=== PATIENT | female | born 1970 | race Caucasian/White ===

== ENCOUNTER 2019-01-21 10:04 | Emergency (ER) | payer OTHER ==
[~2019-01-21] VITALS: Ht 172.7 cm; Wt 68.0 kg
[~2019-01-21 10:04] MED LIST: ALBUTEROL SULF8.5 GM INH; ALLER-FEX180 MG PO; GABAPENTIN100 MG PO; MELOXICAM15 MG PO; PSEUDOEPHEDRINE30 MG PO; WELLBUTRIN SR100 MG PO
--- OUTSIDE RECORDS SUMMARY | 2019-01-21 10:08 | XMS ---
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 E.[place]ourt VISIT COUNT (12 MO.) 1 [facility] [place] TOTAL 1 NOTE: Visits indicate total known visits. ED/UCC VISIT TRACKING (12 MO.) 01/21/2019 10:[address] [facility] [place] TYPE: Emergency COMPLAINT: - SOB INPATIENT VISIT TRACKING (12 MO.) No inpatient visits to display in this time frame [email or web address]
[2019-01-21] MEDS ORDERED: L-METHYLFOLATE15 MG PO (10:19)
[2019-01-21] MEDS ORDERED: VITAMIN D250000 UNIT PO (10:19)
[2019-01-21] MEDS ORDERED: ZUPLENZ4 MG (10:20)
[2019-01-21] MEDS ORDERED: LAMICTAL XR200 MG PO (10:21)
[2019-01-21] MEDS ORDERED: PRAZOSIN HCL5 MG PO (10:21)
[2019-01-21] MEDS ORDERED: DOXYCYCLINE HY100 MG PO (10:22)
[2019-01-21] MEDS ORDERED: BENZONATATE100 MG PO (10:22)
[2019-01-21] MEDS ORDERED: PROPRANOLOL HCL10 MG PO (10:23)
[2019-01-21] MEDS ORDERED: PROZAC10 MG PO (10:24)
--- NOTE | 2019-01-23 07:49 | EKG ---
[facility] [address] [place] [address] Signed Sinus tachycardia Otherwise normal ECG No previous ECGs available Confirmed by STACI RM MD ([id number]) on 01/23/2019 7:49:04 AM Electronically Signed By: STACI RM MD 01/23/19 0749 PATIENT NAME: JAKE GRIER [place] Electrocardiogram DATE OF : 70 PHYSICIAN: STACI RM MD REPORT #: [id number] REPORT IS CONFIDENTIAL AND NOT TO BE RELEASED WITHOUT AUTHORIZATION
--- NOTE | 2019-01-23 07:49 | EKG ---
[facility] [address] [place] [address] Signed Normal sinus rhythm Normal ECG When compared with ECG of 21-JAN-2019 10:13, (Unconfirmed) Vent. rate has decreased BY 54 BPM Confirmed by STACI RM MD ([id number]) on 01/23/2019 7:49:18 AM Electronically Signed By: STACI RM MD 01/23/19 0749 PATIENT NAME: JAKE GRIER Electrocardiogram DATE OF : 70 PHYSICIAN: STACI RM MD REPORT #: [id number] REPORT IS CONFIDENTIAL AND NOT TO BE RELEASED WITHOUT AUTHORIZATION
== END 2019-01-21 12:15 | disposition home or self-care (01) ==
LOC: ED 10:04
DX: J45.909 Unspecified asthma, uncomplicated (principal); J06.9 Acute upper respiratory infection, unspecified; Z87.891 Personal history of nicotine dependence; Z88.8 Allergy status to other drugs, medicaments and biological substances; Z88.1 Allergy status to other antibiotic agents; Z79.899 Other long term (current) drug therapy
CPT/HCPCS: 87502; 93005; 93010; 94640; 99285-25; J1100

== ENCOUNTER 2022-06-15 08:31 | Emergency (ER) | payer OTHER ==
[~2022-06-15] VITALS: Ht 172.7 cm; Wt 68.0 kg
[~2022-06-15 08:31] MED LIST changes: +BENZONATATE100 MG PO; +DOXYCYCLINE HY100 MG PO; +L-METHYLFOLATE15 MG PO; +LAMICTAL XR200 MG PO; +PRAZOSIN HCL5 MG PO; +PROPRANOLOL HCL10 MG PO; +PROZAC10 MG PO; +VITAMIN D250000 UNIT PO; +ZUPLENZ4 MG
== END 2022-06-15 12:12 | disposition home or self-care (01) ==
LOC: ED 08:31
DX: E86.0 Dehydration (principal); T43.595A Adverse effect of other antipsychotics and neuroleptics, initial encounter; F43.0 Acute stress reaction; J45.909 Unspecified asthma, uncomplicated; Z87.891 Personal history of nicotine dependence; Z79.899 Other long term (current) drug therapy; Z88.1 Allergy status to other antibiotic agents; Y92.9 Unspecified place or not applicable
CPT/HCPCS: 36415; 80053; 80178; 81001; 83735; 84443; 85025; J2060; J7030

== ENCOUNTER 2022-06-29 17:39 | Emergency (ER) | payer OTHER ==
[~2022-06-29] VITALS: Ht 172.7 cm; Wt 68.0 kg
--- OUTSIDE RECORDS SUMMARY | 2022-06-29 17:42 | XMS ---
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 Vinny VISIT COUNT (12 MO.) 2 [facility] TOTAL 2 NOTE: Visits indicate total known visits. 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
--- NOTE | 2022-06-30 18:22 | EKG ---
[facility] [address] [place], [place] [address] Signed Normal sinus rhythm Cannot rule out Anterior infarct , age undetermined Abnormal ECG No previous ECGs available Confirmed by SHAHEEN SWEENEY MD ([id number]) on 06/30/2022 6:21:53 PM Electronically Signed By: SHAHEEN SWEENEY MD 06/30/221821 PATIENT NAME: JAKE GRIER Electrocardiogram DATE OF : 70 PHYSICIAN: SHAHEEN SWEENEY MD REPORT #: [id number] REPORT IS CONFIDENTIAL AND NOT TO BE RELEASED WITHOUT AUTHORIZATION
== END 2022-07-01 13:16 | disposition home or self-care (01) ==
LOC: ED 17:39
DX: F10.129 Alcohol abuse with intoxication, unspecified (principal); R45.851 Suicidal ideations; Z87.891 Personal history of nicotine dependence; Z79.899 Other long term (current) drug therapy; Z88.8 Allergy status to other drugs, medicaments and biological substances; Z88.1 Allergy status to other antibiotic agents
CPT/HCPCS: 36415; 80053; 81001; 84703; 85025; 93005; 93010; A9270-GY; G0480; J3411; J7030; J7121